=== PATIENT | male | born 1960 | race American Indian/Alaskan Native ===

== ENCOUNTER 2022-04-03 07:00 | Day surgery (SDC) | payer OTHER ==
--- NOTE | 2022-04-03 08:01 | Anesthesia Day of Surgery ---
Anesthesia Day of Surgery - Day of Surgery Patient Examined: Yes Patient H&P Reviewed: Yes Patient is NPO: Yes
--- NOTE | 2022-04-03 08:01 | Anesthesia Consultation ---
Anesthesia Consult and Med Hx Date of service: 04/03/22 - Airway Anesthetic Teeth Evaluation: Good ROM Head & Neck: Adequate Mental/Hyoid Distance: Adequate Mallampati Class: Class III Intubation Access Assessment: Possibly Difficult (big tongue) - Pulmonary Exam CTA: Yes - Cardiac Exam Cardiac Exam: RRR - Pre-Operative Health Status ASA Pre-Surgery Classification: ASA2 Proposed Anesthetic Plan: General - Pulmonary Hx Smoking: No Hx Sleep Apnea: No (ERICA PRE SCREEN HIGH RISK) - Cardiovascular System Hx Hypertension: Yes (X 1 YR; took amlodipine this morning) Hx Heart Attack/AMI: No Hx Cardia Arrhythmia: No - Central Nervous System CVA: No Hx Psychiatric Problems: No - Endocrine Hx Renal Disease: No Hx Liver Disease: No - Hematic Hx Anemia: No - Other Systems Hx Cancer: No - Additional Comments Anesthesia Medical History Comments: No GAC. No FHAC.
[2022-04-03] MEDS ORDERED: GENTAMICIN 80 MG in SODIUM CHLORIDE 0.9% 100 ML IV SCH (08:15)
[2022-04-03] MEDS ORDERED: LACTATED RINGERS 1,000 ML IV SCH (08:15)
[2022-04-03] MEDS ORDERED: ceFAZolin/Water 2 GM/20 ML 2 GM/20 ML SYRINGE IV NR (09:00)
[2022-04-03] MEDS ORDERED: GENTAMICIN/NS 80 MG/100 ML 100 ML IV ONE (09:00)
[2022-04-03] MEDS ORDERED: LIDOCAINE MPF (2%) 20 MG/1 ML VIAL 5 ML ONE (10:01)
[2022-04-03] MEDS ORDERED: propofoL 200 MG/20 ML VIAL IV ONE (10:01)
[2022-04-03] MEDS ORDERED: ePHEDrine SULFATE 50 MG/1 ML INJ ONE (10:02)
[2022-04-03] MEDS ORDERED: fentaNYL 100 MCG/2 ML INJ ONE ×2 (10:04→10:42)
--- NOTE | 2022-04-03 11:10 | Short Stay Summary ---
Short Stay Documentation Date of service: 04/03/22 - History H&P: obtained from office - Allergies and Medications Current Medications: Allergies No Known Allergies Allergy (Verified 03/29/22 16:24) Home Medications Medication Instructions Recorded Confirmed Last Taken Type Atorvastatin [Lipitor Tab] 80 mg PO QHS 03/29/22 04/03/22 04/02/22 History Multivit-Min/FA/Lycopen/Lutein 1 each PO DAILY 03/29/22 04/03/22 03/31/22 History [Centrum Silver Tablet] amLODIPine [Norvasc] 10 mg PO DAILY 03/29/22 04/03/22 04/03/22 05:30 History Active Medications Lactated Ringer's (Lactated Ringers) 1,000 mls @ 100 mls/hr IV DIRECT ISIAH Stop: 04/03/22 20:00 Last Admin: 04/03/22 08:32 Dose: 100 mls/hr Cefazolin Sodium (Ancef/Sterile Water 2 Gm/20 Ml) 2 gm in 20 mls @ 80 mls/hr IV PREOP NR; Protocol Stop: 04/03/22 23:59 - Brief post op/procedure progress note Date of procedure: 04/03/22 Pre-op diagnosis: BPH, ELEVATED PSA 5 Post-op diagnosis: same Procedure: CYSTO, PUS 60CC, BX Anesthesia: GETA Surgeon: KEITH ALEJANDRO Estimated blood loss: none Pathology: list (12 CORE) Specimen disposition: to lab Condition: stable - Hospital course Hospital course: BACTRIM & NORCO - Disposition Condition at discharge: Stable Disposition: 01 HOME / SELF CARE / HOMELESS Short Stay Discharge Plan Follow up with: JANE HAJI [Other] - 7 Days
[2022-04-03 11:46] VITALS: BP 131/77
--- NOTE | 2022-04-03 11:53 | Ultrasound Report ---
Ultrasound Transrectal INDICATION: ELEVATED PSA. COMPARISON: None available. FINDINGS/IMPRESSION: Limited transrectal ultrasound of the prostate gland was performed to guide prostate biopsy. Please s ee the report for the procedure for further details. Signer Name: Reji Panchal MD Signed: 04/03/2022 11:48 AM Workstation Name: [id number]
--- NOTE | 2022-04-03 12:11 | Operative Report ---
DATE OF SURGERY: 04/03/2022 PREOPERATIVE DIAGNOSES: Benign prostatic hypertrophy, elevated PSA at 5. POSTOPERATIVE DIAGNOSES: Benign prostatic hypertrophy, elevated PSA at 5. PROCEDURES: Cystoscopy, bilateral retrograde pyelograms, transrectal ultrasound, biopsy of prostate (60 mL). SURGEON: Bautista Orlando MD. ANESTHESIA: General. ESTIMATED BLOOD LOSS: Minimal. FLUIDS: Crystalloid. COMPLICATIONS: No complications. INDICATIONS: This patient is a 62-year-old gentleman seen in the office with persistent elevated PSA. Discussed options. He agreed to proceed with surgical intervention. Risks, benefits, complications were explained. DESCRIPTION OF PROCEDURE: The patient was taken to the operative suite, placed in a supine position. After adequate general anesthesia, placed in the dorsal lithotomy position, prepped and draped in a sterile fashion. Pancystourethroscopy was performed with a 22-Swazi Storz cystoscope. No urethral abnormalities. His prostate did display some [id number] trilobar obstruction. Bladder, no tumors or stones were noted. Both ureteral orifices in normal position. Bilateral retrograde pyelograms were obtained with an 8-Swazi Andreina catheter and 8 mL of contrast. No filling defects or obstruction. Next, using a Bard biopsy gun, transrectal ultrasound was performed, transverse and sagittal plane. 60 mL gland. No lesions could be appreciated. Template biopsy was obtained with 12 cores, 4 at the base, 4 mid and 4 apex. Bladder was drained. Rectal exam was benign. He was extubated and taken to recovery room. He will go home on Bactrim and follow up in the office. TID: [id number] RECEIPT: [id number] [facility]
--- NOTE | 2022-04-03 13:03 | Fluoroscopy Report ---
FLUOROSCOPY RETROGRADE UROGRAPHY HISTORY: Elevated PSA FINDINGS: Fluoroscopy was provided by radiology during retrograde urography by the urologist. There i s normal filling of both renal collecting systems. No filling defect or abnormal dilatation is identi fied. IMPRESSION: Unremarkable bilateral retrograde pyelograms Fluoroscopy time: 7 seconds Fluoroscopic images: 2 Signer Name: Deshawn Johansen Jr, MD Signed: 04/03/2022 12:59 PM Workstation Name: [id number]
--- NOTE | 2022-04-03 13:53 | Post Anesthesia Evaluation ---
- Post Anesthesia Evaluation Patient Participated: Yes Airway Patent: Yes Stable Respiratory Function: Yes Nausea/Vomiting: No Temp > 96.8F: Yes Pain Manageable: Yes Adequeate Hydration: Yes Anesthesia Complications: No Block Receding Appropriately: Not Applicable Patient on Ventilator: No
== END 2022-04-03 07:01 | disposition home or self-care (01) ==
LOC: OR 07:00
PROVIDERS: ATTEND Urology
DX: N40.0 Benign prostatic hyperplasia without lower urinary tract symptoms (principal); R97.20 Elevated prostate specific antigen [PSA]; I10 Essential (primary) hypertension; E78.00 Pure hypercholesterolemia, unspecified; Z79.899 Other long term (current) drug therapy; Z98.890 Other specified postprocedural states
CPT/HCPCS: 52005; 55700; 74420; 76872; 88305; C1758; J0690; J1580; J2704; J3010; J3490; J7120; Q9967; 88344